=== PATIENT | male | born 1965 | race Caucasian/White ===

== ENCOUNTER 2019-10-23 14:29 | Inpatient (IN) | payer MEDICAID ==
[~2019-10-23] VITALS: Ht 177.8 cm; Wt 95.7 kg
[2019-10-23 17:06] LABS: EOSINOPHILS % 1.9 % (0.0-5.0); HEMATOCRIT. 42.5 % (42.0-52.0); HEMOGLOBIN. 13.4 g/dL (14.0-18.0); LYMPHOCYTES % 26.4 % (20.0-50.0); MEAN CORPUSCULAR HEMOGLOBIN 26.5 pg (28.0-32.0); MEAN CORPUSCULAR VOLUME 83.8 fL (80.0-94.0); MEAN PLATELET VOLUME 8.6 fl (7.4-10.4); MONOCYTES % 7.3 % (2.0-8.0); NEUTROPHILS % 63.4 % (40.0-76.0); PLATELET 207 x1000/uL (130-400); RED BLOOD CELL COUNT 5.08 mill/uL (4.7-6.1); RED CELL DISTRIBUTION WIDTH 18.8 % (11.6-14.6)
[2019-10-23 17:10] LABS: CHLORIDE 109 mEq/L (98-107)
[2019-10-23] MEDS ORDERED: FUROSEMIDE 40MG/4ML VIAL IVP ONE (17:30)
[2019-10-23] MEDS ORDERED: LORAZEPAM 0.5MG TABLET PO PRN (20:15)
[2019-10-23] MEDS ORDERED: DOCUSATE SODIUM 100MG CAPSULE PO PRN (20:15)
[2019-10-23] MEDS ORDERED: HYDROCODONE/ACETAMINOPHEN 5/325MG TABLET PO PRN (20:15)
[2019-10-23] MEDS ORDERED: CLONIDINE 0.1MG TABLET PO PRN (20:15)
[2019-10-23] MEDS ORDERED: IPRATROPIUM/ALBUTEROL 0.5-3(2.5)MG/3ML NEB HHN PRN (20:15)
[2019-10-23] MEDS ORDERED: ACETAMINOPHEN 325MG TABLET PO PRN (20:15)
[2019-10-23] MEDS ORDERED: ONDANSETRON HCL 4MG/2ML INJ IV PRN (20:15)
[2019-10-23] MEDS ORDERED: SPIR50TA5 MT (23:35)
[2019-10-23] MEDS ORDERED: LISI10TA5 MT (23:35)
[2019-10-23] MEDS ORDERED: SERT50TA MT (23:35)
[2019-10-23] MEDS ORDERED: FURO-151 MT (23:35)
[2019-10-23] MEDS ORDERED: METF-414 MT (23:35)
[2019-10-23] MEDS ORDERED: QUET200T MT (23:35)
[2019-10-24] VITALS (7 sets, daily range): BP systolic 111–127; BP diastolic 80–97
[2019-10-24 06:48] LABS: BASOPHILS % 1.1 % (0.0-2.0); HEMATOCRIT. 41.5 % (42.0-52.0); HEMOGLOBIN. 13.2 g/dL (14.0-18.0); LYMPHOCYTES % 27.3 % (20.0-50.0); MEAN CORPUSCULAR VOLUME 81.8 fL (80.0-94.0); MEAN PLATELET VOLUME 8.9 fl (7.4-10.4); NEUTROPHILS % 59.6 % (40.0-76.0); PLATELET 347 x1000/uL (130-400); RED BLOOD CELL COUNT 5.07 mill/uL (4.7-6.1); RED CELL DISTRIBUTION WIDTH 18.8 % (11.6-14.6)
[2019-10-24 08:35] LABS: CHLORIDE 105 mEq/L (98-107)
[2019-10-24] MEDS ORDERED: FUROSEMIDE 40MG/4ML VIAL IV SCH (09:00)
[2019-10-24] MEDS: GUAIFENESIN 200MG/10ML SUGAR FREE UDC PO PRN ×2 (09:05→12:32)
[2019-10-24] MEDS ORDERED: DEXTROSE 50% WATER 50ML SYRINGE IV PRN (13:00)
[2019-10-24] MEDS: FUROSEMIDE 40MG/4ML VIAL IV SCH (13:30)
[2019-10-24] MEDS: BLOOD SUGAR DIAGNOSTIC STRIP TEST SCH ×3 (13:30→20:41)
[2019-10-24] MEDS ORDERED: METHYLPREDNISOLONE SOD SUCC 125 MG/2 ML VIAL IV NR (13:30)
[2019-10-24] MEDS: INSULIN LISPRO 100 UNITS/ML SUBCUT SCH ×3 (13:59→20:44)
[2019-10-24] MEDS: SPIRONOLACTONE 50MG TABLET PO SCH (13:59)
[2019-10-24] MEDS ORDERED: FUROSEMIDE 40MG/4ML VIAL IVP SCH (14:00)
[2019-10-24] MEDS: SERTRALINE HCL 50MG TABLET PO SCH (14:09)
[2019-10-24] MEDS: PREDNISONE 20MG TABLET PO SCH (18:18)
[2019-10-24] MEDS: IPRATROPIUM/ALBUTEROL 0.5-3(2.5)MG/3ML NEB HHN SCH (20:12)
[2019-10-24] MEDS: FAMOTIDINE 20MG TABLET PO SCH (20:36)
[2019-10-24] MEDS ORDERED: QUETIAPINE FUMARATE 50MG TABLET PO SCH (21:00)
[2019-10-25 00:05] VITALS: BP 113/79
[2019-10-25] MEDS: IPRATROPIUM/ALBUTEROL 0.5-3(2.5)MG/3ML NEB HHN SCH ×3 (01:56→13:55)
[2019-10-25 04:00] VITALS: BP 114/61
[2019-10-25] MEDS: BLOOD SUGAR DIAGNOSTIC STRIP TEST SCH ×2 (05:45→12:40)
[2019-10-25 07:22] LABS: INR 1.3; PROTHROMBIN TIME 13.4 sec (9.6-11.0)
[2019-10-25 07:26] LABS: BASOPHILS % 0.2 % (0.0-2.0); HEMATOCRIT. 38.1 % (42.0-52.0); HEMOGLOBIN. 12.5 g/dL (14.0-18.0); LYMPHOCYTES % 13.4 % (20.0-50.0); MEAN CORPUSCULAR HEMOGLOBIN 26.9 pg (28.0-32.0); MEAN CORPUSCULAR VOLUME 81.9 fL (80.0-94.0); MEAN PLATELET VOLUME 8.8 fl (7.4-10.4); MONOCYTES % 2.1 % (2.0-8.0); NEUTROPHILS % 84.3 % (40.0-76.0); PLATELET 283 x1000/uL (130-400); RED BLOOD CELL COUNT 4.65 mill/uL (4.7-6.1); RED CELL DISTRIBUTION WIDTH 18.7 % (11.6-14.6)
[2019-10-25 08:00] VITALS: BP 109/66
[2019-10-25 08:12] LABS: *AMPHETAMINES SCREEN URINE PRESUMTIVE POSITIVE (NEGATIVE); *BARBITURATES SCREEN URINE NEGATIVE (NEGATIVE); *BENZODIAZEPINES SCREEN URINE PRESUMTIVE POSITIVE (NEGATIVE); *COCAINE SCREEN URINE NEGATIVE (NEGATIVE)
[2019-10-25 08:13] LABS: CANNABINOID URINE SCREEN PRESUMTIVE POSITIVE (NEGATIVE); METHADONE URINE SCREEN NEGATIVE (NEGATIVE); OPIATES URINE SCREEN PRESUMTIVE POSITIVE (NEGATIVE); PHENCYCLIDINE URINE SCREEN NEGATIVE (NEGATIVE)
[2019-10-25] MEDS: SPIRONOLACTONE 50MG TABLET PO SCH (08:41)
[2019-10-25] MEDS: FUROSEMIDE 40MG/4ML VIAL IV SCH (08:48)
[2019-10-25] MEDS: FAMOTIDINE 20MG TABLET PO SCH (08:48)
[2019-10-25] MEDS: SERTRALINE HCL 50MG TABLET PO SCH (08:48)
[2019-10-25] MEDS: PREDNISONE 20MG TABLET PO SCH (08:48)
[2019-10-25] MEDS: GUAIFENESIN 200MG/10ML SUGAR FREE UDC PO PRN (08:48)
[2019-10-25] MEDS: INSULIN LISPRO 100 UNITS/ML SUBCUT SCH ×2 (08:49→13:20)
[2019-10-25 08:52] LABS: CHLORIDE 105 mEq/L (98-107)
[2019-10-25] MEDS ORDERED: LISINOPRIL 10MG TABLET PO SCH (09:00)
[2019-10-25] MEDS ORDERED: NICOTINE 14MG PATCH TD SCH (09:00)
[2019-10-25 09:02] LABS: LDL CHOLESTEROL 45 mg/dL (5-100)
[2019-10-25 09:06] LABS: HDL CHOLESTEROL 27 mg/dL (40-59)
[2019-10-25 09:08] LABS: TOTAL IRON BINDING CAPACITY 438 ug/dL (250-450)
[2019-10-25 09:40] LABS: VITAMIN B12 SERUM 539 pg/mL (211-911)
[2019-10-25 09:59] LABS: FERRITIN 142 ng/mL (22-322)
[2019-10-25 10:11] LABS: HEPATITIS B SURFACE ANTIGEN NEGATIVE
[2019-10-25 10:38] LABS: HEPATITIS A AB IGM NEGATIVE (NEGATIVE)
[2019-10-25 12:00] VITALS: BP 114/71
[2019-10-25 15:27] VITALS: BP 114/71
[2019-10-26 05:11] LABS: HIV SCREEN 4G Non Reactive (Non Reactive)
[2019-10-26 09:06] LABS: % CD 3 POS. LYMPHOCYTES 75.7 % (57.5-86.2); % CD 4 POS. LYMPHOCYTES 44.7 % (30.8-58.5); % CD 8 POS. LYMPH 32.2 % (12.0-35.5); ABSOLUTE CD 3 757 /uL (622-2402); ABSOLUTE CD 4 HELPER 447 /uL (359-1519); ABSOLUTE CD 8 SUPPRESSOR 322 /uL (109-897); ABSOLUTE MONOCYTES 0.1 x10E3/uL (0.1-0.9); ABSOLUTE NEUTROPHILS 5.4 x10E3/uL (1.4-7.0); BASOPHILS 0 % (Not Estab.); CD4/CD8 RATIO 1.39 (0.92-3.72); HEMATOCRIT 40.5 % (37.5-51.0); HEMOGLOBIN 12.4 g/dL (13.0-17.7); IMMATURE GRANULOCYTES 0 % (Not Estab.); LYMPHOCYTES 15 % (Not Estab.); MEAN CORPUSCULAR HEMOGLOBIN 26.1 pg (26.6-33.0); MEAN CORPUSCULAR HGB CONC. 30.6 g/dL (31.5-35.7); MEAN CORPUSCULAR VOLUME 85 fL (79-97); MONOCYTES 1 % (Not Estab.); NEUTROPHILS 84 % (Not Estab.); PLATELETS 335 x10E3/uL (150-450); RBC 4.75 x10E6/uL (4.14-5.80); RED CELL DISTRIBUTION WIDTH 17.9 % (11.6-15.4); WBC 6.5 x10E3/uL (3.4-10.8)
== END 2019-10-25 16:50 | disposition home or self-care (01) | DRG 133 ==
LOC: ER 14:29 → 7WST 18:44 → EDBEDREQ 18:47 → EDBEDREQTM 18:47 → ENRESERV 19:56
PROVIDERS: ADMIT Internal Medicine; ATTEND Internal Medicine
PROC: 0JBQ0ZZ Excision of Right Foot Subcutaneous Tissue and Fascia, Open Approach (ICD-10-PCS; principal; 2019-10-24)
DX: J96.00 Acute respiratory failure, unspecified whether with hypoxia or hypercapnia (principal); I50.33 Acute on chronic diastolic (congestive) heart failure; J68.0 Bronchitis and pneumonitis due to chemicals, gases, fumes and vapors; D69.2 Other nonthrombocytopenic purpura; J44.0 Chronic obstructive pulmonary disease with (acute) lower respiratory infection; L97.919 Non-pressure chronic ulcer of unspecified part of right lower leg with unspecified severity; B19.20 Unspecified viral hepatitis C without hepatic coma; I77.6 Arteritis, unspecified; E11.9 Type 2 diabetes mellitus without complications; L97.929 Non-pressure chronic ulcer of unspecified part of left lower leg with unspecified severity; F17.210 Nicotine dependence, cigarettes, uncomplicated; B07.0 Plantar wart; D64.9 Anemia, unspecified; F15.10 Other stimulant abuse, uncomplicated; F29 Unspecified psychosis not due to a substance or known physiological condition; I11.0 Hypertensive heart disease with heart failure; R07.89 Other chest pain; F12.10 Cannabis abuse, uncomplicated; Z71.6 Tobacco abuse counseling; Z71.51 Drug abuse counseling and surveillance of drug abuser
CPT/HCPCS: 36415; 71045; 76700; 80048; 80053; 80061; 80305; 82607; 82728; 82746; 82962; 83036; 83540; 83550; 83880; 84484; 85025; 86359; 86360; 86705; 86709; 86803; 87340; 87389; 87536; 93005; 93306; 94640; 96374; 99285; J1815; J1940; J2930; J7512; J7620